=== PATIENT | female | born 1980 | race Hispanic/Latino ===

== ENCOUNTER 2024-06-18 08:18 | Emergency (ER) | payer BC ==
[~2024-06-18] VITALS: Ht 162.6 cm; Wt 72.6 kg
[2024-06-18 08:22] VITALS: TEMP 98.1
[2024-06-18 08:52] LABS: BASOPHILS # (AUTO) 0.03 K/uL (0.00-0.20); BASOPHILS % (AUTO) 0.5 % (0.0-5.0); EOSINOPHILS # (AUTO) 0.16 K/uL (0.00-0.70); EOSINOPHILS % (AUTO) 2.5 % (0.0-8.0); HEMATOCRIT 42.9 % (36-48); IMMATURE GRANULOCYTE ABSOLUTE 0.01 K/uL (0-1); LYMPHOCYTES # (AUTO) 2.5 K/uL (1.0-4.8); LYMPHOCYTES % (AUTO) 38.3 % (21.0-51.0); MEAN CORPUSCULAR HEMOGLOBIN 26.1 pg (27.0-33.0); MEAN CORPUSCULAR HGB CONC 31.7 g/dL (32.0-36.0); MEAN CORPUSCULAR VOLUME 82.3 fL (79-99); MONOCYTES # (AUTO) 0.4 K/uL (0.1-1.0); MONOCYTES % (AUTO) 6.3 % (3.0-13.0); NEUTROPHILS # (AUTO) 3.4 K/uL (1.8-7.7); NEUTROPHILS % (AUTO) 52.2 % (40.0-77.0); PLATELET COUNT (AUTO) 305 K/uL (130-400); RED BLOOD CELL COUNT(AUTO) 5.21 MIL/uL (4.00-5.50); RED CELL DISTRIBUTION WIDTH 13.2 % (11.0-15.5); WHITE BLOOD COUNT (AUTO) 6.5 K/uL (4.8-10.8)
[2024-06-18 08:59] LABS: APPEARANCE,URINE CLEAR (CLEAR); BILIRUBIN,URINE NEGATIVE (NEGATIVE); COLOR,URINE LIGHT-YELLOW (YELLOW); GLUCOSE, URINE (UA) NEGATIVE (NEGATIVE); KETONES,URINE NEGATIVE (NEGATIVE); LEUKOCYTE ESTERASE ,URINE NEGATIVE Leu/uL (NEGATIVE); NITRATE,URINE NEGATIVE (NEGATIVE); OCCULT BLOOD,URINE NEGATIVE (NEGATIVE); PH,URINE 6.5 (5.0-8.0); PROTEIN,URINE NEGATIVE (NEGATIVE); UROBILINOGEN,URINE 0.2 mg/dL (0.2-1.0)
[2024-06-18 09:00] LABS: ADD UA MICROSCOPIC NO
[2024-06-18 09:01] LABS: CREATININE 0.9 mg/dL (0.5-1.0); POTASSIUM 4.1 mmol/L (3.5-5.1)
[2024-06-18 09:16] LABS: B-TYPE NATRIURETIC PEPTIDE 9 pg/mL (0-100)
[2024-06-18 10:53] VITALS: BP 104/80; PULSE 68; RESP 15; O2SAT 100
== END 2024-06-18 11:48 | disposition left against medical advice (07) ==
LOC: EDH 08:18
DX: R07.89 Other chest pain (principal); I10 Essential (primary) hypertension; E11.9 Type 2 diabetes mellitus without complications; E78.00 Pure hypercholesterolemia, unspecified; F17.200 Nicotine dependence, unspecified, uncomplicated
CPT/HCPCS: 36415; 71045; 80048; 81003; 81025; 82550; 83880; 84484; 85025; 93005

== ENCOUNTER 2025-07-02 07:43 | Emergency (ER) | payer BC ==
[~2025-07-02] VITALS: Ht 165.1 cm; Wt 68.9 kg
--- NOTE | 2025-07-02 07:50 | EKG ---
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
[2025-07-02 08:13] LABS: IMMATURE GRANULOCYTE ABSOLUTE 0.01 K/uL (0-1); NUCLEATED RED BLOOD CELLS 0.0 % (0.0-0.19); PLATELET COUNT (AUTO) 295 K/uL (130-400); RED BLOOD CELL COUNT(AUTO) 4.87 MIL/uL (4.00-5.50); RED CELL DISTRIBUTION WIDTH 12.9 % (11.0-15.5); WHITE BLOOD COUNT (AUTO) 6.5 K/uL (4.8-10.8)
[2025-07-02] MEDS: ASPIRIN 325MG EC TAB PO ONE (08:22)
[2025-07-02 08:32] LABS: CREATINE KINASE, TOTAL 100.0 U/L (21-232); CREATININE 0.9 mg/dL (0.5-1.0); GLOMERULAR FILTR. RATE CALC 80.0 mL/min (>90); GLUCOSE,RANDOM 109.0 mg/dL (70-105); SODIUM SERUM 139.0 mmol/L (136-145); UREA NITROGEN, BLOOD 15.0 mg/dL (7-18)
--- NOTE | 2025-07-02 08:46 | ERN ---
General Chief Complaint: Chest Pain Stated Complaint: CHEST PAIN History of Present Illness Initial Comments Patient is 44-year-old female who presented to ED with complaints of chest pain started around 5:00 a.m. this morning and shortness of breath. Patient says that the pain is sharp and radiating to left shoulder. She Had similar episode 6 months back and went to [facility] for evaluation and it was unremarkable. Recently her PCP identified some changes in ECG and asked her to visit ED whenever she has chest pain. she Denies nausea, vomiting, palpitations. Allergies: Coded Allergies: No Known Drug Allergies (Unverified Allergy, Unknown, 06/18/24) Past Medical History Past Medical History: Diabetes-Type II, High Cholesterol Past Surgical History: None Family History Family History: Negative Social History Social History: Smokers, ETOH Constitutional: (-) chills, (-) diaphoresis, (-) fever, (-) malaise, (-) weakness, (-) other documentation Respiratory: (+) short of breath; (-) cough, (-) orthopnea, (-) stridor, (-) wheezing, (-) other documentation Cardiovascular: (+) chest pain; (-) edema, (-) palpitations, (-) syncope, (-) dyspnea on exertion, (-) other documentation Gastrointestinal/Abdominal: (-) nausea, (-) vomiting, (-) diarrhea, (-) abdominal pain, (-) abdominal distention, (-) constipation, (-) rectal bleeding, (-) dark stool/melena, (-) other documentation Review of Systems: was completed Nurses Notes Reviewed: Yes Physical Exam General Appearance: (+) no apparent distress; (-) apparent distress, (-) mild distress, (-) moderate distress, (-) severe distress, (-) thin, (-) obese, (-) combative, (-) cachetic, (-) anxious, (-) other documentation Orientation: (+) alert, (+) oriented x 3; (-) disoriented, (-) other documentation Head/Face Trauma: No Respiratory: (+) lungs clear, (+) well ventilated; (-) chest non-tender, (-) decreased breath sounds, (-) retractions, (-) abnormal breath sound, (-) crackles, (-) plerual rub, (-) rales, (-) rhonchi, (- ) stridor, (-) wheezing, (-) other documentation Heart: (+) regular Results Laboratory and Microbiology Lab and Micro Result Laboratory Tests Test 07/02/25 08:05 White Blood Count 6.5 K/uL (4.8-10.8) Red Blood Count 4.87 MIL/uL (4.00-5.50) Hemoglobin 13.2 g/dL (12.0-16.0) Hematocrit 41.5 % (36-48) Mean Corpuscular Volume 85.2 fL (79-99) Mean Corpuscular Hemoglobin 27.1 pg (27.0-33.0) Mean Corpuscular Hemoglobin Concent 31.8 g/dL (32.0-36.0) L Red Cell Distribution Width 12.9 % (11.0-15.5) Platelet Count 295 K/uL (130-400) Mean Platelet Volume 9.0 fL (7.5-10.5) Immature Granulocyte % (Auto) 0.2 % (0-1) Neutrophils (%) (Auto) 50.9 % (40.0-77.0) Lymphocytes (%) (Auto) 40.7 % (21.0-51.0) Monocytes (%) (Auto) 6.0 % (3.0-13.0) Eosinophils (%) (Auto) 1.7 % (0.0-8.0) Basophils (%) (Auto) 0.5 % (0.0-5.0) Neutrophils # (Auto) 3.3 K/uL (1.8-7.7) Lymphocytes # (Auto) 2.6 K/uL (1.0-4.8) Monocytes # (Auto) 0.4 K/uL (0.1-1.0) Eosinophils # (Auto) 0.11 K/uL (0.00-0.70) Basophils # (Auto) 0.03 K/uL (0.00-0.20) Absolute Immature Granulocyte (auto 0.01 K/uL (0-1) Nucleated Red Blood Cells 0.0 % (0.0-0.19) Sodium Level 139 mmol/L (136-145) Potassium Level 4.4 mmol/L (3.5-5.1) Chloride Level 103 mmol/L (101-111) Carbon Dioxide Level 33 mmol/L (21-32) H Blood Urea Nitrogen 15 mg/dL (7-18) Creatinine 0.9 mg/dL (0.5-1.0) Glomerular Filtration Rate Calc 80 mL/min (>90) Random Glucose 109 mg/dL (70-105) H Total Calcium 9.1 mg/dL (8.5-10.1) Total Creatine Kinase 100 U/L (21-232) Troponin I High Sensitivity < 4 ng/L (4-50) L EKG/XRAY/US/CT/MRI EKG Comment : 1980 date: 07/02/2025 time: 7:44 a.m. Rate: 94 SINUS RHYTHM SD 156 QRSD 101 QT 379 QTcB 474 STEMI: NO X-RAY Comment [place] [id number] [place] [id number] IMAGING REPORT Signed PATIENT: DON RANDALL MR#: [id number] : 1980 SEX: F AGE: 44 LOCATION: [facility] ORDER 0800 STATUS: [facility] REPORT#: [id number] SERVICE [id number] REASON: chest pain, shortness of breath ORDERING PHYSICIAN: MARTIN BAUM MD PROCEDURE: CXR1VW - CHEST 1VW EXAM: CR Chest, 1 View. CLINICAL HISTORY: chest pain, shortness of breath COMPARISON: None provided. FINDINGS: LUNGS: The lungs show no infiltrate or other acute finding. PLEURAL SPACES: No pleural effusion or pneumothorax. MEDIASTINUM: Cardiac size and mediastinal contours within normal limits. BONES: No aggressive appearing osseous lesion seen. IMPRESSION: No acute cardiopulmonary pathology is evident. /[place] DICTATED BY: RISHI ARGUETA Jr., MD DATE: 07/02/25 1007 ELECTRONICALLY SIGNED BY: RISHI ARGUETA Jr., MD DATE: 07/02/25 1007 [facility] MDM: DIFFERENTIAL DIAGNOSIS: STEMI, NSTEMI, BIGEMINY, ACS, Patient is 44-year-old female who presented to ED with chest pain and shortness of breath which started 5:00 a.m. this morning. She said the pain is sharp and radiating to left shoulder. Aspirin 325 mg 1 tablet per oral is given in the ER. We ordered ECG, troponin I, CBC, CMP, chest x-ray, CK. ECG shows sinus rhythm with ventricular bigeminy, chest x-ray unremarkable, CBC, CMP, CK, troponin I within normal ranges. We informed the patient about abnormal ECG, patient said that she had this problem for a while and her previous airplane fueler wanted to do echocardiogram. We explained her the potential causes of abnormal ECG admit her for further evaluation by airplane fueler,she refused further evaluation and want to leave against medical advice. ED Course Orders Procedure Category Date Status Time 12 Lead Ekg Tracing- EKG 07/02/25 Complete Technical 07:46 Cbc With Differential LAB 07/02/25 Complete 07:59 Basic Metabolic Panel LAB 07/02/25 Complete 07:59 Troponin I High LAB 07/02/25 Complete Sensitivity 07:59 Chest 1vw RAD 07/02/25 Resulted 07:59 Aspirin 325mg Ec Tab PHA 07/02/25 Complete (Aspirin 325mg Ec T 08:30 Creatine Kinase, Total LAB 07/02/25 Complete 08:05 Troponin I High LAB 07/02/25 Logged Sensitivity 08:59 Current Medications Medications (Trade) Dose Ordered Sig/Lexi Route PRN Reason Start Time Stop Time Status Last Admin Dose Admin Aspirin (Aspirin 325mg Ec Tab) 325 mg ONCE ONCE PO 07/02/25 08:30 07/02/25 08:32 DC 07/02/25 08:22 Vital Signs Date Time Temp Pulse Resp B/P (MAP) Pulse Ox O2 Delivery O2 Flow Rate FiO2 07/02/25 08:16 97.7 82 18 110/75 99 Room Air* 0 21 07/02/25 08:01 97.9 82 16 111/77 98 Room Air 0 DX & DISP Disposition: AMA Departure Impression: Primary Impression: Ventricular bigeminy Additional Impression: Chest pain Condition: Against Medical Advice Additional Instructions: PATIENT IS A 44-YEAR-OLD FEMALE COMING IN COMPLAINING OF CHEST PAIN. EKG SHOWED BIGEMINY. PATIENT WAS ADVISED ADMISSION BUT REFUSED TO STAY. PATIENT HAS BEEN DEALING WITH THIS CHEST PAIN FOR A YEAR ON AND OFF WAS EVALUATED BY DIRECTOR OF CHANNEL MARKETING RECOMMENDED ECHOCARDIOGRAM PERFORMED BUT PATIENT STATES SHE WAS NOT ABLE TO AFFORD IT SO REFUSED TO DO IT. DUE TO THE ONGOING CHEST PAIN AND THE ABNORMALITY AND EKG PATIENT WAS ADVISED TO STAY OVERNIGHT TO BE EVALUATED BY DIRECTOR OF CHANNEL MARKETING. PATIENT REFUSED STATES SHE WILL FOLLOW-UP WITH HER PCP. DESPITE MY PLEASE TO STAY PATIENT INSISTED THAT SHE DOES NOT WANT TO STAY. PATIENT IS NEUROLOGICALLY INTACT IS ALERT AND ORIENTED TO PERSON PLACE AND TIME Referrals: AARON LEVY DO (PCP) Time of Disposition: 09:45 MARTIN BAUM MD Jul 02, 2025 08:46
--- NOTE | 2025-07-02 09:08 | HMCIMG ---
EXAM: CR Chest, 1 View. CLINICAL HISTORY: chest pain, shortness of breath COMPARISON: None provided. FINDINGS: LUNGS: The lungs show no infiltrate or other acute finding. PLEURAL SPACES: No pleural effusion or pneumothorax. MEDIASTINUM: Cardiac size and mediastinal contours within normal limits. BONES: No aggressive appearing osseous lesion seen. IMPRESSION: No acute cardiopulmonary pathology is evident. /[place]
[2025-07-02 09:36] VITALS: BP 118/78; PULSE 80; RESP 18; TEMP 97.7; O2SAT 98
--- NOTE | 2025-07-02 09:38 | NUR ---
pt wanting to leave ama educated pt on the possible risks even verbalized understanding will follow if symptoms get worse. pt signed ama form er made aware
== END 2025-07-02 09:39 | disposition left against medical advice (07) ==
LOC: EDH 07:43
DX: R00.8 Other abnormalities of heart beat (principal); R07.89 Other chest pain; E11.9 Type 2 diabetes mellitus without complications; E78.00 Pure hypercholesterolemia, unspecified; F17.200 Nicotine dependence, unspecified, uncomplicated
CPT/HCPCS: 36415; 71045; 80048; 82550; 84484; 85025; 93005; 99284